=== PATIENT | male | born 1980 | race Caucasian/White ===

== ENCOUNTER 2021-03-29 11:05 | Emergency (ER) | payer OTHER, SELFPAY ==
[2021-03-29 11:12] VITALS: BP 152/90; PULSE 92; RESP 14; TEMP 36.7; O2SAT 99
--- NOTE | 2021-03-29 11:16 | ED.URI ---
HPI - URI/Sore Throat General Chief Complaint: Upper Respiratory Infection Stated Complaint: head congestion Time Seen by Provider: 03/29/21 11:17 Source: patient Mode of arrival: ambulatory Limitations: no limitations History of Present Illness HPI Narrative: Maxwell is a 40 year old male who ambulated into [facility] today with complaint of 2 days of nasal congestion and yellow drainage. Patient states he gets this every year. Patient denies any fever, body aches, chills, or any other symptoms patient states he already takes Flonase daily and a daily allergy medication. MD elicited complaint: nasal congestion Related Data Home Medications Medication Instructions Recorded Confirmed No Home Medications 03/29/21 03/29/21 Allergies Allergy/AdvReac Type Severity Reaction Status Date / Time No Known Allergies Allergy Verified 03/29/21 11:16 Review of Systems Review of Systems: CONSTITUTIONAL: Denies body aches, fever, chills, or sweats. EYES: Denies visual changes, redness, or discharge. ENT: Denies rhinorrhea,+ congestion,denies sore throat, or otalgia. CARDIOVASCULAR: Denies chest pain, palpitations, or edema. RESPIRATORY: Denies cough or dyspnea. GASTROINTESTINAL: Denies abdominal pain, nausea, vomiting, or diarrhea. GENITOURINARY: Denies dysuria or hematuria. SKIN: Denies rash, itching, or wounds. MUSCULOSKELETAL: Denies back pain, joint pain, or myalgia. NEUROLOGIC: Denies headache, numbness, tingling, or weakness. PSYCH: Denies depression or anxiety. All systems reviewed & are unremarkable except as noted in HPI and below PMFSH Comments At time of signature, I have reviewed and agree with nursing past medical, surgical, social and family history unless otherwise noted. Please see nursing chart for further information. There is no relevant family history pertinent to the presenting complaint Exam Narrative: GENERAL: Well-appearing, well-nourished, and in no acute distress. HEAD: Normocephalic, atraumatic. EYES: EOMI. No redness or drainage. Conjunctivae normal. ENT: Mucous membranes pink and moist. Nasal membranes erythematous with clear rhinorrhea. Bilateral tympanic membranes are dull with minimal fluid no erythema. Posterior pharynx is mildly erythemic. Moderate clear postnasal drainage is noted. Nares clear. No rhinorrhea. TMs normal bilaterally. Throat normal. Uvula midline. NECK: Normal AROM. Supple. No lymphadenopathy. CHEST: No respiratory distress. Clear to auscultation. MUSCULOSKELETAL: No bony tenderness. EXTREMITIES: Normal range of motion. No edema. SKIN: Warm, dry, no rash. Capillary refill normal. Normal skin turgor. NEURO: No focal deficits. Alert and oriented x3. Gait steady. PSYCH: Normal affect. No signs of depression or anxiety. Course Vital Signs Vital signs: Vital Signs Temperature 36.7 C 03/29/21 11:12 Pulse Rate 92 03/29/21 11:12 Respiratory Rate 14 03/29/21 11:12 Blood Pressure 152/90 H 03/29/21 11:12 Pulse Oximetry 99 03/29/21 11:12 Temperature 36.7 C 03/29/21 11:12 Pulse Rate 92 03/29/21 11:12 Respiratory Rate 14 03/29/21 11:12 Blood Pressure 152/90 H 03/29/21 11:12 Pulse Oximetry 99 03/29/21 11:12 Reviewed. Pt has been instructed to follow up with his PCP regarding his elevated blood pressure today. MDM - URI/Sore Throat MDM Narrative Medical decision making narrative: Patient has a 2-day history of sinus congestion, patient states he has yellow or green nasal drainage when he blows his nose. Patient is already on daily Flonase and allergy medicine. Patient was instructed he may use saline nasal sprays and may use Sudafed such as Claritin-D or Zyrtec-D daily for symptom relief patient was informed that if the he is still sick at day 10 through 14 he may return to his primary care physician for antibiotics. He was educated that sinus infection started out as viral. And at day 10-14 is when he turned bacterial. Alpesh
== END 2021-03-29 11:27 | disposition home or self-care (01) ==
PROVIDERS: Emergency Provider Nurse Practitioner Family
DX: J01.00 Acute maxillary sinusitis, unspecified (principal)
CPT/HCPCS: 99211; G0463

== ENCOUNTER 2021-04-02 08:40 | Emergency (ER) | payer OTHER, SELFPAY | END 2021-04-02 08:53 | disposition left against medical advice (07) | LOC: EXPBETH 08:42 | PROVIDERS: Emergency Provider Nurse Practitioner Family | DX: Z53.21 Procedure and treatment not carried out due to patient leaving prior to being seen by health care provider (principal) | CPT/HCPCS: 99199 ==

== ENCOUNTER 2021-04-05 09:21 | Emergency (ER) | payer OTHER, SELFPAY ==
[2021-04-05 09:26] VITALS: BP 123/75; PULSE 72; RESP 16; TEMP 36.8; O2SAT 100
--- NOTE | 2021-04-05 10:13 | ED.URI ---
HPI - URI/Sore Throat General Chief Complaint: Upper Respiratory Infection Stated Complaint: Sinus Pain Source: patient and RN notes reviewed Mode of arrival: ambulatory History of Present Illness HPI Narrative: 40-year-old male presenting for complaint of sinus infection not going away. He states he is having a productive cough with green sputum for the last 11 days. He is taking Sudafed, Flonase, and Zyrtec with no significant relief. He denies dizziness, fever or chills. He endorses occasional frontal headaches. He denies sick contacts. He is not vaccinated for Covid. Related Data Allergies Allergy/AdvReac Type Severity Reaction Status Date / Time No Known Allergies Allergy Verified 03/29/21 11:16 Review of Systems Review of Systems: All systems reviewed & are unremarkable except as noted in HPI and below [facility] Family History Family History (Updated 04/05/21 @ 10:15 by Delores Singer APRN) Other Family history non-contributory Exam Const: General: alert HENMT: Ears: TM abnormal with fluid behind the TM Throat: posterior oropharynx abnormal erythema Neck: Neck: normal visual inspection Chest: Chest palpation & inspection: normal inspection of the chest Resp: Effort & Inspection: normal respiratory effort Auscultation: clear to auscultation bilaterally Cardio: Rate: regular rate Rhythm: regular rhythm GI: Inspection: normal to inspection Skin: General skin exam: normal color Course Course Emergency Course: dc home with abx Level of Care: Express Care Visit Vital Signs Vital signs: Vital Signs Temperature 98.3 F 04/05/21 09:26 Pulse Rate 72 04/05/21 09:26 Respiratory Rate 16 04/05/21 09:26 Blood Pressure 123/75 04/05/21 09:26 Pulse Oximetry 100 04/05/21 09:26 Temperature 98.3 F 04/05/21 09:26 Pulse Rate 72 04/05/21 09:26 Respiratory Rate 16 04/05/21 09:26 Blood Pressure 123/75 04/05/21 09:26 Pulse Oximetry 100 04/05/21 09:26 MDM - URI/Sore Throat Differential Diagnosis Differential diagnosis: Likely upper respiratory infection, sinusitis and viral infection Discharge Plan Discharge Clinical Impression: Sinusitis Patient Disposition: Home, Self-Care Condition: Stable Instructions: Antibiotic Form, Sinusitis (ED) Additional Instructions: Take antibiotics as directed. Follow-up with your primary care provider as needed. Return if symptoms do not improve. Prescriptions: New amoxicillin-pot clavulanate [Augmentin] 875-125 mg tablet 1 tablet PO Q12H 7 Days Qty: 14 RF: 0 Follow-up/Referrals: PHYSICIAN,[employer] [Primary Care Provider] -
== END 2021-04-05 10:36 | disposition home or self-care (01) ==
PROVIDERS: Emergency Provider Nurse Practitioner Family
DX: J32.9 Chronic sinusitis, unspecified (principal)
CPT/HCPCS: 99213; G0463

== ENCOUNTER 2022-04-04 13:33 | Emergency (ER) | payer OTHER, SELFPAY ==
[2022-04-04 13:37] VITALS: BP 148/78; PULSE 82; RESP 16; TEMP 36.6; O2SAT 99
--- NOTE | 2022-04-04 13:37 | ED.URI ---
HPI - URI/Sore Throat General Chief Complaint: Upper Respiratory Infection Stated Complaint: sinus infection Time Seen by Provider: 04/04/22 13:37 Source: patient and RN notes reviewed History of Present Illness HPI Narrative: patient is a 41-year-old male who presents to urgent care with complaints of a yellow rhinorrhea/ mucus. Patient states he has had it for several weeks and takes Flonase daily. Patient denies any sinus pressure, congestion, cough, fevers headache. Denies cough. Patient is not taking anything other than Flonase [id number] for his symptoms. No other acute complaints. No acute distress noted. Patient aware of the plan of care. Some parts of this dictation were generated by voice recognition software and may contain typographical and/or grammatical inaccuracies. Related Data Allergies Allergy/AdvReac Type Severity Reaction Status Date / Time No Known Allergies Allergy Verified 03/29/21 11:16 Review of Systems Review of Systems: CONSTITUTIONAL: Denies fever, chills, or sweats. EYES: Denies visual changes, redness, or discharge. ENT: Reports yellow rhinorrhea postnasal drainage CARDIOVASCULAR: Denies chest pain, palpitations, or edema. RESPIRATORY: Denies cough or dyspnea. GASTROINTESTINAL: Denies abdominal pain, nausea, vomiting, or diarrhea. GENITOURINARY: Denies dysuria or hematuria. SKIN: Denies rash or itching. MUSCULOSKELETAL: Denies back pain, joint pain, or myalgia. NEUROLOGIC: Denies headache, numbness, or weakness. All other systems reviewed are negative, except as documented in HPI. [facility] Family History Family History (Updated 04/05/21 @ 10:15 by Delores Singer APRN) Other Family history non-contributory Comments At the time of my signature, I reviewed and agree with the nursing past medical, surgical, social, and family history. There is no relevant family history pertinent to the patient complaint. Exam Narrative: GENERAL: This is a well-nourished, well-developed patient, in no apparent distress. HEAD: normocephalic, atraumatic. EYES: PERRL. Sclera clear/white. Vision is grossly intact. EARS: External ears normal, auditory canals clear and without drainage, TMs normal without perforation. Hearing grossly intact. NOSE: External nose normal with no obvious nasal discharge, nares without redness, clear to yellow rhinorrhea. THROAT: Mucous membranes moist, posterior pharynx clear. moderate postnasal drainage NECK: Neck supple, non-tender without lymphadenopathy CARDIOVASCULAR: Regular rate and rhythm RESPIRATORY: Clear to auscultation. Breath sounds equal bilaterally. No wheezes, rales, or rhonchi. SKIN: warm, intact with no suspicious lesions or rash, good texture and turgor. NEURO: awake, alert, and oriented to person, place and time. There were no obvious focal neurologic abnormalities. EXTREMITIES: No clubbing, cyanosis, or edema. Course Course Level of Care: Express Care Visit Vital Signs Vital signs: Vital Signs Temperature 98 F 04/04/22 13:37 Pulse Rate 82 04/04/22 13:37 Respiratory Rate 16 04/04/22 13:37 Blood Pressure 148/78 H 04/04/22 13:37 Pulse Oximetry 99 04/04/22 13:37 Oxygen Delivery Room Air 04/04/22 13:37 Temperature 98 F 04/04/22 13:37 Pulse Rate 82 04/04/22 13:37 Respiratory Rate 16 04/04/22 13:37 Blood Pressure 148/78 H 04/04/22 13:37 Pulse Oximetry 99 04/04/22 13:37 Oxygen Delivery Room Air 04/04/22 13:37 reviewed- Patient is informed that they may have pre-hypertension or hypertension based on a blood pressure reading in the department. I recommend the patient call the primary care provider listed on their discharge instructions or a physician of their choice this week to arrange follow-up for further evaluation of possible pre-hypertension or hypertension. MDM - URI/Sore Throat MDM Narrative Medical decision making narrative: advised patient take a daily antihistamine in conjunction with
== END 2022-04-04 13:59 | disposition home or self-care (01) ==
PROVIDERS: Emergency Provider Nurse Practitioner Family
DX: J30.9 Allergic rhinitis, unspecified (principal)
CPT/HCPCS: 99213; G0463

== ENCOUNTER 2023-11-18 15:14 | Emergency (ER) | payer OTHER, SELFPAY ==
[2023-11-18 15:26] VITALS: BP 151/101; PULSE 66; RESP 16; TEMP 36.8; O2SAT 100
--- NOTE | 2023-11-18 15:33 | ED.EYEPROB ---
HPI - Eye Problem General Chief complaint: Eye Problems Stated complaint: left side eyelid History of Present Illness HPI Narrative: Patient presents with a stye to his left upper eyelid no vision problems does not were contacts states has been there for 2 weeks and he has been new applying warm compresses with minimal relief in his symptoms. Related Data Allergies Allergy/AdvReac Type Severity Reaction Status Date / Time No Known Allergies Allergy Verified 03/29/21 11:16 Review of Systems Review of Systems: CONSTITUTIONAL: Denies fever, chills, or sweats. EYES: Denies visual changes, redness, or discharge. ENT: Denies rhinorrhea, congestion, sore throat, or otalgia. CARDIOVASCULAR: Denies chest pain, palpitations, or edema. RESPIRATORY: Denies cough or dyspnea. GASTROINTESTINAL: Denies abdominal pain, nausea, vomiting, or diarrhea. GENITOURINARY: Denies dysuria or hematuria. SKIN: Denies rash or itching. MUSCULOSKELETAL: Denies back pain, joint pain, or myalgia. NEUROLOGIC: Denies headache, numbness, or weakness. PSYCHIATRIC: Denies anxiety or depression. [facility] Family History Family History (Updated 04/05/21 @ 10:15 by Delores Hernández, HAILEY) Other Family history non-contributory Comments At time of signature, agree with nursing past medical, surgical, social and family history. There is no relevant family history pertinent to the presenting complaint Exam Narrative: GENERAL: Well-appearing, well-nourished, and in no acute distress. HEAD: Normocephalic, atraumatic. EYES: PERRLA and EOMI.left upper eyelid no redness to the eye, no drainage, no blurred vision. no pain of the eye with movement. swelling and redness to the edge of the eyelid. believes it is a sty. hordeolum present, no drainable abscess, mild eyelid redness and swelling. no concern for yusef-orbital cellulitis or orbital cellulitis ENT: Nares clear, no rhinorrhea or epistaxis. Mucous membranes moist. NECK: Supple. CHEST: Clear to auscultation. No respiratory distress. HEART: Regular rate and rhythm. No murmur heard. Normal peripheral pulses. ABDOMEN: Soft, nontender, nondistended, normal active bowel sounds. EXTREMITIES: Normal range of motion. No edema. SKIN: Warm, dry, no rash. NEURO: No focal deficits. Alert and oriented x3. Salima Coma Scale Eye Opening: Spontaneous 4 Stow Coma Scale Motor: Obeys Commands 6 Stow Coma Scale Verbal: Oriented 5 Stow Coma Scale Total 15 Course Course Level of Care: Express Care Visit Vital Signs Vital signs: Vital Signs Temperature 36.8 C 11/18/23 15:26 Pulse Rate 66 11/18/23 15:26 Respiratory Rate 16 11/18/23 15:26 Blood Pressure 151/101 H 11/18/23 15:26 Pulse Oximetry 100 11/18/23 15:26 Oxygen Delivery Room Air 11/18/23 15:26 Temperature 36.8 C 11/18/23 15:26 Pulse Rate 66 11/18/23 15:26 Respiratory Rate 16 11/18/23 15:26 Blood Pressure 151/101 H 11/18/23 15:26 Pulse Oximetry 100 11/18/23 15:26 Oxygen Delivery Room Air 11/18/23 15:26 Please JACKIE schedule a followup visit with your personal physician for further evaluation and treatment. Including recheck and discussion of your blood pressure. If your symptoms persist, change or worsen significantly before you can contact your personal physician then please, without delay, go to the emergency department for further evaluation Discharge Plan Discharge Clinical Impression: External hordeolum Patient Disposition: Home, Self-Care Condition: Stable Instructions: Seth Nobles (ED) Additional Instructions: warm moist compresses to the eye for 10 minutes, four times a day Apply antibiotic ointment as prescribed do not rub the eye do not wear contacts until the area heals If no improvement in 2-3 days follow-up with primary care provider or family eye doctor for further evaluation treatment if any new or worsening symptoms go to ER immediately further evaluation treatment
== END 2023-11-18 15:40 | disposition home or self-care (01) ==
PROVIDERS: Emergency Provider Nurse Practitioner Family
DX: H00.014 Hordeolum externum left upper eyelid (principal)
CPT/HCPCS: 99213; G0463